=== PATIENT | male | born 1985 | race Caucasian/White ===

== ENCOUNTER 2020-09-02 12:34 | Emergency (ER) | payer OTHER ==
--- NOTE | 2020-09-02 13:52 | RADIOLOGY REPORT (SQ) ---
EXAM DESCRIPTION: SHOULDER LEFT 2 OR MORE VIEWS IMAGES COMPLETED DATE/TIME: 09/02/2020 1:28 pm REASON FOR STUDY: left shoulder injury COMPARISON: None. NUMBER OF VIEWS: Three views. TECHNIQUE: Internal rotation, external rotation, and Y view images acquired of the left shoulder. LIMITATIONS: None. FINDINGS: MINERALIZATION: Normal. BONES: No acute fracture. No worrisome bone lesions. JOINTS: No dislocation. VISUALIZED LUNGS AND RIBS: No pneumothorax. No rib fracture. SOFT TISSUES: No radiopaque foreign body. OTHER: No other significant finding. IMPRESSION: NEGATIVE STUDY OF THE LEFT SHOULDER. NO RADIOGRAPHIC EVIDENCE OF ACUTE INJURY. TECHNICAL DOCUMENTATION: JOB ID: [id number] 2010 [employer]- All Rights Reserved Reading location - IP/workstation name: [email or web address]
--- NOTE | 2020-09-02 14:21 | ER Document Report ---
HPI - HPI Time Seen by Provider: 09/02/20 13:13 Pain Level: 2 Notes: 35-year-old male patient presenting to the emergency department with pain to his left deltoid. Patient reports he had a flu shot approximately 10 days ago. He states he has had pain ever since then running down his left arm. Patient is concerned they had a nerve. Patient has taken Tylenol and ibuprofen for his symptoms. - ROS Systems Reviewed and Negative: Yes All other systems reviewed and negative - MUSCULOSKELETAL Musculoskeletal: REPORTS: Extremity pain Past Medical History - General Information source: Patient - Social History Smoking Status: Never Smoker Chew tobacco use (# tins/day): No Frequency of alcohol use: Occasional Drug Abuse: None Family History: Reviewed & Not Pertinent - Medical History Medical History: Negative Surgical Hx: Negative - Immunizations Hx Diphtheria, Pertussis, Tetanus Vaccination: Yes Vertical Provider Document - CONSTITUTIONAL Notes: PHYSICAL EXAMINATION: GENERAL: Well-appearing, well-nourished and in no acute distress. HEAD: Atraumatic, normocephalic. EYES: Pupils equal round extraocular movements intact, conjunctiva are normal. ENT: Nares patent NECK: Normal range of motion LUNGS: No respiratory distress Musculoskeletal: Normal range of motion to left upper extremity, no obvious erythema, induration or fluctuance. Tiny area of ecchymosis consistent with injection site. Strong radial pulse, cap refill less than 3 seconds, normal motor and sensation distally. NEUROLOGICAL: Normal speech, normal gait. PSYCH: Normal mood, normal affect. SKIN: Warm, Dry, normal turgor, no rashes or lesions noted. - INFECTION CONTROL TRAVEL OUTSIDE OF THE [place] IN LAST 30 DAYS: No Course - Re-evaluation Re-evalutation: X-ray shows no retained foreign body, no acute bony injury. There is no cellulitis noted at the site. Patient will need to follow-up with primary care and/or Ortho if symptoms persist. Patient agreeable to this plan. - Vital Signs Vital signs: Temp Pulse Resp BP Pulse Ox 98.1 F 111 H 18 129/84 H 97 09/02/20 12:46 09/02/20 12:46 09/02/20 12:46 09/02/20 12:46 09/02/20 12:46 Discharge - Discharge Clinical Impression: Arm pain, left Condition: Stable Disposition: HOME, SELF-CARE Additional Instructions: The xray is negative for any obvious injury or retained foreign body. Alternate heat and/or ice to the area. You may try taking the medication that I have prescribed as this may help with your symptoms. He will need to follow-up with primary care or orthopedics if your pain persists. I have given you a phone number for orthopedics on this paperwork. Prescriptions: Gabapentin [Neurontin 100 mg Capsule] 200 mg PO Q12 #40 capsule Referrals: PETER GAUTAM MD [ACTIVE STAFF] - Follow up as needed
[2020-09-02 15:52] VITALS: BP 126/80
== END 2020-09-02 15:53 | disposition home or self-care (01) ==
LOC: ER 12:34
DX: M79.622 Pain in left upper arm (principal); Z98.890 Other specified postprocedural states
CPT/HCPCS: 99283